=== PATIENT | female | born 1960 | race Caucasian/White ===

== ENCOUNTER 2021-05-05 08:44 | Day surgery (SDC) | payer BC ==
[2021-05-05] MEDS ORDERED: SODIUM CHLORIDE 0.9% 1,000 ML IV STA (09:02)
[2021-05-05] MEDS ORDERED: ASPIRIN CHEW 81 MG TABLET PO STA (09:02)
[2021-05-05] MEDS ORDERED: ONDANSETRON 4 MG/2 ML VIAL IVP STA ×2 (09:02→12:55)
[2021-05-05] MEDS ORDERED: HYDROmorphone 1 MG/ML CARPUJECT IVP STA ×4 (09:16→14:11)
[2021-05-05] MEDS ORDERED: GI COCKTAIL 120 ML BOTTLE PO STA (09:17)
--- NOTE | 2021-05-05 09:22 | ED Physician Documentation ---
PD HPI CHEST PAIN - Stated complaint Stated Complaint: CHEST PX,SOA,NAUSEA - Chief complaint Chief Complaint: Cardiac - History obtained from History obtained from: Patient - Additional information Additional information: Patient comes to the emergency department chief complaint of episodic substernal chest pain that has been going on every couple of days for the last 2 weeks. Patient states she has had pain like this before for years, but that it usually is not so frequent. At worst, the pain is a 8 out of 10, and radiates to the back. Is worse with deep breaths. No radiation to shoulders or neck. Patient states that she gets a sense of panic when that happens and begins breathing hard. She also states she gets some nausea, but she thinks it is from the pain. Patient denies any specific triggers. The current episode began at 3:00 this morning and has been steady since. Nothing seems to make it better. Deep breaths make it worse. No exertional component. Patient has a history of hypertension and borderline diabetes. She has been told previously that she has gastritis and states that "stomach stuff" runs in her family. She has a history of cholelithiasis when she was 30 years ago, but has not known of any issues with it since. No history of pancreatitis. 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 She states that she was put on anticoagulants after this and control was stopped, and that eventually, the clots went away. The patient states that she has not had any issues with this since. She is not known to have any coronary artery disease. She states both parents in their early 60s, from complications related to alcoholism, but never had heart disease that she knows of. Patient has not been ill with anything recently. No other complaints at this time. Review of Systems Ten Systems: 10 systems reviewed and negative Constitutional: reports: Reviewed and negative Eyes: reports: Reviewed and negative Ears: reports: Reviewed and negative Nose: reports: Reviewed and negative Throat: reports: Reviewed and negative Cardiac: reports: Chest pain / pressure Respiratory: reports: Dyspnea GI: reports: Abdominal Pain, Nausea : reports: Reviewed and negative Skin: reports: Reviewed and negative Musculoskeletal: reports: Reviewed and negative Neurologic: reports: Reviewed and negative Psychiatric: reports: Reviewed and negative Endocrine: reports: Reviewed and negative Immunocompromised: reports: Reviewed and negative PD PAST MEDICAL HISTORY - Past Medical History Past Medical History: Yes Cardiovascular: Hypertension Neuro: Migraines - Past Surgical History Past Surgical History: Yes Ortho: Hip replacement, Shoulder arthroplasty - Present Medications Home Medications: Ambulatory Orders Medication Instructions Recorded Confirmed Docusate Sodium 250Mg Capsule 250 mg PO DAILY #20 cap 05/05/21 [Colace 250Mg Capsule] Lactobacillus Acidophilus 1 each PO DAILY 05/05/21 05/05/21 [Probiotic Acidophilus] Lisinopril [Zestril] 20 mg PO DAILY 05/05/21 05/05/21 Ondansetron Odt [Zofran Odt] 4 mg TL Q6H PRN #10 tablet 05/05/21 oxyCODONE [Roxicodone] 5 mg PO Q4-6H PRN #20 tablet 05/05/21 - Allergies Allergies/Adverse Reactions: Allergies Allergy/AdvReac Type Severity Reaction Status Date / Time nitrofurantoin Allergy Hives Verified 05/05/21 08:57 [From Macrobid] codeine AdvReac Emesis Verified 05/05/21 08:58 - Social History Does the pt smoke?: No Smoking Status: Never smoker Does the pt drink ETOH?: No - Immunizations Immunizations are current?: Yes - POLST Patient has POLST: No PD ED PE NORMAL - Vitals Vital signs reviewed: Yes - General General: Alert and oriented X 3, Other (Mildly anxious, Appears in moderate discomfort, occasionally pushing on her inferior sternum, otherwise no apparent distress) - HEENT HEENT: Atraumatic, PERRL, EOMI, Moist mucous membranes - Neck Neck: Supple, no meningeal sign - Cardiac Cardiac: RRR, No murmur, Strong equal pulses - Respiratory Respiratory: No respiratory distress, Clear bilaterally - Abdomen Abdomen: Soft, Non distended, Other (Moderate epigastric tenderness, no rebound or guarding. 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, No motor deficit, No sensory deficit, Normal speech - Psych Psych: Normal affect, Other (Mildly anxious, otherwise normal mood.) Results - Vitals Vitals: Vital Signs - 24 hr 05/05/21 05/05/21 05/05/21 08:54 09:04 09:30 Temperature 36.4 C L Heart Rate 69 60 56 L Respiratory 16 17 17 Rate Blood Pressure 180/98 H 165/109 H O2 Saturation 98 100 99 05/05/21 05/05/21 05/05/21 09:50 11:22 11:58 Temperature Heart Rate 62 61 60 Respiratory 17 12 16 Rate Blood Pressure 155/62 H 149/120 H 137/93 H O2 Saturation 95 99 93 05/05/21 12:03 Temperature Heart Rate 63 Respiratory 16 Rate Blood Pressure 137/73 H O2 Saturation 93 Oxygen O2 Source Room air - EKG (time done) 0852 Rate: Rate (enter#) (55) Rhythm: NSR [place]: Normal Intervals: Normal SD QRS: Normal Ischemia: Normal ST segments. No: T wave inversion Compare to prior EKG: Old EKG unavailable Computer interpretation: Agree with computer - Labs Labs: Laboratory Tests 05/05/21 05/05/21 05/05/21 09:25 09:25 09:25 WBC 7.1 RBC 4.72 Hgb 14.1 Hct 42.6 MCV 90.3 MCH 29.9 MCHC 33.1 RDW 13.4 Plt Count 218 MPV 10.5 Neut # (Auto) 4.5 Lymph # (Auto) 2.1 [place] # (Auto) 0.4 Eos # (Auto) 0.0 Baso # (Auto) 0.1 Absolute Nucleated RBC 0.00 Nucleated RBC % 0.0 PT 11.9 INR 1.1 D-Dimer 226.6 Sodium 138 Potassium 4.5 Chloride 103 Carbon Dioxide 23 Anion Gap 12.0 BUN 16 Creatinine 0.7 Estimated GFR (MDRD) 85 L Glucose 149 H Calcium 9.5 Total Bilirubin 0.9 AST 17 ALT 20 Alkaline Phosphatase 46 Troponin I High Sens Total Protein 7.7 Albumin 4.5 Globulin 3.2 Albumin/Globulin Ratio 1.4 Lipase 36 Nasal Adenovirus (PCR) Nasal B. parapertussis DNA (PCR) Nasal Coronavir 229E PCR Nasal Coronavir HKU1 PCR Nasal Coronavir NL63 PCR Nasal Coronavir OC43 PCR Nasal Enterovir/Rhinovir PCR Nasal Influenza B PCR Nasal Influenza A PCR Nasal Parainfluen 1 PCR Nasal Parainfluen 2 PCR Nasal Parainfluen 3 PCR Nasal Parainfluen 4 PCR Nasal RSV (PCR) Nasal B.pertussis DNA PCR Nasal C.pneumoniae (PCR) [place] Human Metapneumo PCR Nasal M.pneumoniae (PCR) Nasal SARS-CoV-2 (PCR) 05/05/21 05/05/21 05/05/21 09:25 09:25 11:09 WBC RBC Hgb Hct MCV MCH MCHC RDW Plt Count MPV Neut # (Auto) Lymph # (Auto) [place] # (Auto) Eos # (Auto) Baso # (Auto) Absolute Nucleated RBC Nucleated RBC % PT INR D-Dimer Sodium Potassium Chloride Carbon Dioxide Anion Gap BUN Creatinine Estimated GFR (MDRD) Glucose Calcium Total Bilirubin AST ALT Alkaline Phosphatase Troponin I High Sens 11.2 Total Protein Albumin Globulin Albumin/Globulin Ratio Lipase 34 Nasal Adenovirus (PCR) NOT DETECTED Nasal B. parapertussis DNA (PCR) NOT DETECTED Nasal Coronavir 229E PCR NOT DETECTED Nasal Coronavir HKU1 PCR NOT DETECTED Nasal Coronavir NL63 PCR NOT DETECTED Nasal Coronavir OC43 PCR NOT DETECTED Nasal Enterovir/Rhinovir PCR NOT DETECTED Nasal Influenza B PCR NOT DETECTED Nasal Influenza A PCR NOT DETECTED Nasal Parainfluen 1 PCR NOT DETECTED Nasal Parainfluen 2 PCR NOT DETECTED Nasal Parainfluen 3 PCR NOT DETECTED Nasal Parainfluen 4 PCR NOT DETECTED Nasal RSV (PCR) NOT DETECTED Nasal B.pertussis DNA PCR NOT DETECTED Nasal C.pneumoniae (PCR) NOT DETECTED [place] Human Metapneumo PCR NOT DETECTED Nasal M.pneumoniae (PCR) NOT DETECTED Nasal SARS-CoV-2 (PCR) NOT DETECTED PD MEDICAL DECISION MAKING - ED course Complexity details: reviewed results, re-evaluated patient, considered differential, d/w patient, d/w family ED course: The patient was worked up with labs, EKG, chest x-ray, and ultrasound of the right upper quadrant. She was treated symptomatically with IV fluids, aspirin, Zofran, Dilaudid, and GI cocktail. Patient's labs were unremarkable, as were her EKG and chest x-ray, but ultrasound did show evidence of cholecystitis with a calculus lodged in the neck of the gallbladder. I spoke with the patient about this and she was amenable to having surgery today as she has required repeated doses of Dilaudid for pain control in the emergency department. I spoke with Dr. Morales, who is planning to take the patient to operating room at 1600 today. At her request, patient was given a dose of Zosyn here in the emergency department. Departure - Departure Disposition: ED Transfer to [facility] Clinical Impression: Acute cholecystitis due to biliary calculus Condition: Serious
--- NOTE | 2021-05-05 09:29 | XRAY Report ---
PROCEDURE: Chest 1 View X-Ray INDICATIONS: Chest Pain TECHNIQUE: One view of the chest was acquired. COMPARISON: None FINDINGS: Surgical changes and devices: None. Lungs and pleura: No pleural effusions or pneumothorax. Lungs are clear. Mediastinum: Mediastinal contours appear normal. Heart size is normal. Bones and chest wall: No suspicious bony lesions. Overlying soft tissues appear unremarkable. IMPRESSION: No acute cardiopulmonary abnormality Reviewed by: Izaiah Avendaño on 05/05/2021 9:28 AM PDT Approved by: Izaiah Avendaño on 05/05/2021 9:28 AM PDT Station ID: [id number]
[2021-05-05 09:34] LABS: BASOPHILS # (AUTO) 0.1 10^3/uL (0.0-0.1); BASOPHILS % (AUTO) 0.7 %; EOSINOPHILS % (AUTO) 0.6 %; HCT - HEMATOCRIT 42.6 % (37.0-47.0); HGB - HEMOGLOBIN 14.1 g/dL (12.0-16.0); LYMPHOCYTES # (AUTO) 2.1 10^3/uL (1.5-3.5); LYMPHOCYTES % (AUTO) 28.8 %; MEAN CORPUSCULAR HEMOGLOBIN 29.9 pg (27.0-31.0); MEAN CORPUSCULAR HGB CONC 33.1 g/dL (32.0-36.0); MEAN CORPUSCULAR VOLUME 90.3 fL (81.0-99.0); MEAN PLATELET VOLUME 10.5 fL (7.9-10.8); MONOCYTES # (AUTO) 0.4 10^3/uL (0.0-1.0); MONOCYTES % (AUTO) 5.8 %; NEUTROPHILS # (AUTO) 4.5 10^3/uL (1.5-6.6); NEUTROPHILS % (AUTO) 63.8 %; PLT - PLATELET COUNT 218 10^3/uL (130-450); RED BLOOD COUNT 4.72 10^6/uL (4.20-5.40); RED CELL DISTRIBUTION WIDTH 13.4 % (12.0-15.0); WHITE BLOOD COUNT 7.1 x10^3/uL (4.8-10.8)
[2021-05-05] MEDS ORDERED: LIDOCAINE VISCOUS 2% 15 ML UDC MM STA (09:39)
[2021-05-05] MEDS ORDERED: MAG HYDROX/AL HYDROX/SIMETH 30 ML UDC PO STA (09:39)
[2021-05-05 09:44] LABS: INR 1.1 (0.8-1.2); PT - PROTHROMBIN TIME 11.9 secs (9.9-12.6)
[2021-05-05 09:51] LABS: D-DIMER 226.6 ng/mL (200.0-255.0)
[2021-05-05 09:54] LABS: ALBUMIN 4.5 g/dL (3.2-5.5); ALBUMIN/GLOBULIN RATIO 1.4 (1.0-2.2); BILIRUBIN,TOTAL 0.9 mg/dL (0.2-1.0); CALCIUM 9.5 mg/dL (8.5-10.3); CREATININE 0.7 mg/dL (0.4-1.0); POTASSIUM 4.5 mmol/L (3.5-5.0); TOTAL PROTEIN 7.7 g/dL (6.7-8.2)
--- NOTE | 2021-05-05 10:37 | Ultrasound Report ---
PROCEDURE: Abdomen Limited INDICATIONS: epigastric pain TECHNIQUE: Real-time scanning was performed of the abdominal and retroperitoneal organs, with image documentatio n. COMPARISON: None. FINDINGS: Liver: Liver is mildly prominent measuring 16.2 cm and demonstrates steatosis. Gallbladder: There is a focus of nonmobile increased echogenicity within the gallbladder neck. No per icholecystic fluid In addition, areas of ringdown artifact are noted from the gallbladder wall, consi stent with adenomyomatosis. Gallbladder wall is thickened measuring 3.4 cm. Biliary ducts: Intrahepatic bile ducts are non-dilated. Extrahepatic bile duct caliber measures 6.9 mm. Normal is 6-7 mm or less in diameter, or 10 mm or less post-cholecystectomy. Pancreas: Visualized portions of the pancreas are sonographically normal. Spleen: Spleen is normal in size and homogeneous in echotexture. Kidneys: Kidneys are normal in size and echotexture. Right kidney measures 11.9 cm long. No hydron ephrosis or nephrolithiasis. No solid masses. IMPRESSION: Gallbladder stone consistent with cholelithiasis. Gallbladder wall is thickened. Findings are suggest cristela of cholecystitis. Reviewed by: Mary Painter MD on 05/05/2021 10:36 AM PDT Approved by: Mary Painter MD on 05/05/2021 10:36 AM PDT Station ID: [id number]
[2021-05-05 12:24] LABS: CORONAVIRUS 229E-RESP PCR NOT DETECTED; CORONAVIRUS HKU1-RESP PCR NOT DETECTED; CORONAVIRUS NL63-RESP PCR NOT DETECTED; CORONAVIRUS OC43-RESP PCR NOT DETECTED; HUMAN METAPNEUMOVIRUS NOT DETECTED; INFLUENZA A- RESP PCR PANEL NOT DETECTED; RHINOVIRUS/ENTEROVIRUS NOT DETECTED; SARS-CoV-2 -RESP PCR PANEL NOT DETECTED
[2021-05-05 12:25] LABS: B. PARAPERTUSSIS- RESP PCR PAN NOT DETECTED; B. PERTUSSIS- RESP PCR PANEL NOT DETECTED; C. PNEUMONIAE- RESP PCR PANEL NOT DETECTED; INFLUENZA B - RESP PCR PANEL NOT DETECTED; M. PNEUMONIAE- RESP PCR PANEL NOT DETECTED; PARAINFLUENZA VIRUS 1 NOT DETECTED; PARAINFLUENZA VIRUS 2 NOT DETECTED; PARAINFLUENZA VIRUS 3 NOT DETECTED; PARAINFLUENZA VIRUS 4 NOT DETECTED; RSV- RESP PCR PANEL NOT DETECTED
[2021-05-05] MEDS ORDERED: PIPERACILLIN/TAZOBACTAM 3.375 GM in SODIUM CHLORIDE 0.9% MINIBAG 100 ML IV STA (12:26)
--- NOTE | 2021-05-05 13:02 | ANESTHESIA ---
Pre-Anesthesia VS, & Labs - Diagnosis acute cholecystitis - Procedure laparoscopic cholecystectomy Vital Signs: Temp Pulse Resp BP Pulse Ox 36.4 C L 63 16 137/73 H 93 05/05/21 08:54 05/05/21 12:03 05/05/21 12:03 05/05/21 12:03 05/05/21 12:03 Height: 5 ft 8 in Weight (kg): 106.594 kg Body Mass Index: 35.7 BMI Classification: Obese - NPO >8 hours - Is Patient ?: No - Lab Results Current Lab Results: Laboratory Tests 05/05/21 09:25: Lipase 34 05/05/21 09:25: Troponin I High Sens 11.2 05/05/21 09:25: Sodium 138, Potassium 4.5, Chloride 103, Carbon Dioxide 23, Anion Gap 12.0, BUN 16, Creatinine 0.7, Estimated GFR (MDRD) 85 L, Glucose 149 H , Calcium 9.5, Total Bilirubin 0.9, AST 17, ALT 20, Alkaline Phosphatase 46, Total Protein 7.7, Albumin 4.5, Globulin 3.2, Albumin/Globulin Ratio 1.4, Lipase 36 05/05/21 09:25: PT 11.9, INR 1.1, D-Dimer 226.6 05/05/21 09:25: WBC 7.1, RBC 4.72, Hgb 14.1, Hct 42.6, MCV 90.3, MCH 29.9, MCHC 33.1, RDW 13.4, Plt Count 218, MPV 10.5, Neut # (Auto) 4.5, Lymph # (Auto) 2.1, [place] # (Auto) 0.4, Eos # (Auto) 0.0, Baso # (Auto) 0.1, Absolute Nucleated RBC 0.00, Nucleated RBC % 0.0 Lab results reviewed: Yes Fish Bones: 05/05/21 09:25 05/05/21 09:25 Home Medications and Allergies Home Medications: Ambulatory Orders Lactobacillus Acidophilus [Probiotic Acidophilus] 1 each PO DAILY 05/05/21 Lisinopril [Zestril] 20 mg PO DAILY 05/05/21 Lactobacillus Acidophilus [Probiotic Acidophilus] 1 each PO DAILY 05/05/21 Lisinopril [Zestril] 20 mg PO DAILY 05/05/21 Allergies/Adverse Reactions: Allergies Allergy/AdvReac Type Severity Reaction Status Date / Time nitrofurantoin Allergy Hives Verified 05/05/21 08:57 [From Macrobid] codeine AdvReac Emesis Verified 05/05/21 08:58 Anes History & Medical History - Anesthetic History Anesthesia Complications: reports: No previous complications Family history of Anesthesia Complications: Denies Family history of Malignant Hyperthermia: Denies - Medical History Cardiovascular: reports: Hypertension Pulmonary: reports: None Gastrointestinal: reports: None Urinary: reports: None Neuro: reports: Migraines Musculoskeletal: reports: None Endocrine/Autoimmune: reports: None Blood Disorders: reports: None Skin: reports: None Smoking Status: Never smoker Psychosocial: reports: No issues indicated History of Cancer?: No - Surgical History Orthopedic: reports: Hip replacement, Shoulder arthroplasty Exam General: Alert, Oriented x3, Cooperative, No acute distress Dental: WNL Mouth Openin Fingerbreadth Neck Mobility: Normal Mallampati classification: II Respiratory: Lungs clear, Normal breath sounds, No respiratory distress, No accessory muscle use Cardiovascular: Regular rate, Normal S1, Normal S2, No murmurs Plan Anesthesia Type: General Consent for Procedure(s) Verified and Reviewed: Yes Code Status: Attempt Resuscitation ASA classification: 2-Mild systemic disease Is this case an emergency?: No
--- NOTE | 2021-05-05 13:13 | HISTORY & PHYSICAL EXAMINATION ---
HPI - Admitted From Admitted from: ED - History Obtained From Records Reviewed: RN notes reviewed History obtained from: Patient, Family Exam limitations: No limitations - History of Present Illness Severity at the worst: reports: Severe Pain Quality: reports: Sharp, Aching, Crushing Context-Pain started w/: reports: Rest Timing: reports: Abrupt onset Duration: reports: Hours: (12) Improved with: reports: Nothing Worsened by: reports: Movement, Palpation Associated symptoms: reports: Nausea HPI Comment/Other: There is a anna 61-year-old lady for crushing substernal chest pain. She has a known history of gallstones diagnosed more than 20 years ago. She [place] her [place] a [place] the [place] and they actually live across the [facility]. She reports that she has had similar pains off and on for the last several years but nothing this severe. She was seen and evaluated by ER staff and ruled out for IN with normal troponin and EKG. Labs have all been normal. Ultrasound shows a stone lodged in the neck of the gallbladder that is no longer mobile the patient had a positive [place] sign on examination. PMH/PSH - Past Medical History Cardiovascular: positive: Hypertension Respiratory: positive: None Neuro: positive: Migraines Endocrine/Autoimmune: positive: None GI: positive: None : positive: None Musculoskeletal: positive: None Derm: positive: None MRSA Hx?: No - Past Surgical History Ortho: positive: Hip replacement, Shoulder arthroplasty Social & Family Hx - Living Situation Living Arrangement: At home - Social History Does the pt smoke?: No Smoking Status: Never smoker Does the pt drink ETOH?: No - POLST Patient has POLST: No Meds/Allgy - Home Medications Home Medications: Ambulatory Orders Medication Instructions Recorded Confirmed Docusate Sodium 250Mg Capsule 250 mg PO DAILY #20 cap 05/05/21 [Colace 250Mg Capsule] Lactobacillus Acidophilus 1 each PO DAILY 05/05/21 05/05/21 [Probiotic Acidophilus] Lisinopril [Zestril] 20 mg PO DAILY 05/05/21 05/05/21 Ondansetron Odt [Zofran Odt] 4 mg TL Q6H PRN #10 tablet 05/05/21 oxyCODONE [Roxicodone] 5 mg PO Q4-6H PRN #20 tablet 05/05/21 - Allergies Allergies/Adverse Reactions: Allergies Allergy/AdvReac Type Severity Reaction Status Date / Time nitrofurantoin Allergy Hives Verified 05/05/21 08:57 [From Macrobid] codeine AdvReac Emesis Verified 05/05/21 08:58 Review of Systems - Constitutional Constitutional: reports: Fatigue - Cardiovascular Cariovascular: reports: Chest pain - Gastrointestinal Gastrointestinal: reports: Abdominal pain, Nausea Exam - Vital Signs Reviewed Vital Signs: Yes Vital Signs: Vital Signs x48h Temp Pulse Resp BP Pulse Ox 05/05/21 12:03 63 16 137/73 H 93 05/05/21 11:58 60 16 137/93 H 93 05/05/21 11:22 61 12 149/120 H 99 05/05/21 09:50 62 17 155/62 H 95 05/05/21 09:30 56 L 17 165/109 H 99 05/05/21 09:04 60 17 100 05/05/21 08:54 36.4 C L 69 16 180/98 H 98 - Physical Exam General Appearance: positive: Alert, Mild distress Eyes Bilateral: positive: Normal inspection, PERRL, EOMI ENT: positive: ENT inspection nml, Pharynx nml, No signs of dehydration Neck: positive: Nml inspection, Thyroid nml, No JVD Respiratory: positive: Chest non-tender, No respiratory distress, Breath sounds nml Cardiovascular: positive: Regular rate & rhythm Peripheral Pulses: positive: 0 Abdomen: positive: Tenderness Back: positive: CVA tenderness (R). negative: CVA tenderness (L) Skin: positive: Color nml, No rash Extremities: positive: Non-tender, Full ROM Neurologic/Psychiatric: positive: Oriented x3 Results - Lab Results Fish Bones: 05/05/21 09:25 05/05/21 09:25 Other Lab Results: Lab Results x24hrs 05/05/21 05/05/21 05/05/21 Range/Units 11:09 09:25 09:25 WBC (4.8-10.8) x10^3/uL RBC (4.20-5.40) 10^6/uL Hgb (12.0-16.0) g/dL Hct (37.0-47.0) % MCV (81.0-99.0) fL MCH (27.0-31.0) pg MCHC (32.0-36.0) g/dL RDW (12.0-15.0) % Plt Count (130-450) 10^3/uL MPV (7.9-10.8) fL Neut # (Auto) (1.5-6.6) 10^3/uL Lymph # (Auto) (1.5-3.5) 10^3/uL [place] # (Auto) (0.0-1.0) 10^3/uL Eos # (Auto) (0.0-0.7) 10^3/uL Baso # (Auto) (0.0-0.1) 10^3/uL Absolute Nucleated RBC x10^3/uL Nucleated RBC % /100WBC PT (9.9-12.6) secs INR (0.8-1.2) D-Dimer (200.0-255.0) ng/mL Sodium (135-145) mmol/L Potassium (3.5-5.0) mmol/L Chloride (101-111) mmol/L Carbon Dioxide (21-32) mmol/L Anion Gap (6-13) BUN (6-20) mg/dL Creatinine (0.4-1.0) mg/dL Estimated GFR (MDRD) (>89) Glucose (70-100) mg/dL Calcium (8.5-10.3) mg/dL Total Bilirubin (0.2-1.0) mg/dL AST (10-42) IU/L ALT (10-60) IU/L Alkaline Phosphatase (42-121) IU/L Troponin I High Sens 11.2 (2.3-14.8) ng/L Total Protein (6.7-8.2) g/dL Albumin (3.2-5.5) g/dL Globulin (2.1-4.2) g/dL Albumin/Globulin Ratio (1.0-2.2) Lipase 34 (22-51) U/L Nasal Adenovirus (PCR) NOT DETECTED Nasal B. parapertussis DNA (PCR) NOT DETECTED Nasal Coronavir 229E PCR NOT DETECTED Nasal Coronavir HKU1 PCR NOT DETECTED Nasal Coronavir NL63 PCR NOT DETECTED Nasal Coronavir OC43 PCR NOT DETECTED Nasal Enterovir/Rhinovir PCR NOT DETECTED Nasal Influenza B PCR NOT DETECTED Nasal Influenza A PCR NOT DETECTED Nasal Parainfluen 1 PCR NOT DETECTED Nasal Parainfluen 2 PCR NOT DETECTED Nasal Parainfluen 3 PCR NOT DETECTED Nasal Parainfluen 4 PCR NOT DETECTED Nasal RSV (PCR) NOT DETECTED Nasal B.pertussis DNA PCR NOT DETECTED Nasal C.pneumoniae (PCR) NOT DETECTED [place] Human Metapneumo PCR NOT DETECTED Nasal M.pneumoniae (PCR) NOT DETECTED Nasal SARS-CoV-2 (PCR) NOT DETECTED 05/05/21 05/05/21 05/05/21 Range/Units 09:25 09:25 09:25 WBC 7.1 (4.8-10.8) x10^3/uL RBC 4.72 (4.20-5.40) 10^6/uL Hgb 14.1 (12.0-16.0) g/dL Hct 42.6 (37.0-47.0) % MCV 90.3 (81.0-99.0) fL MCH 29.9 (27.0-31.0) pg MCHC 33.1 (32.0-36.0) g/dL RDW 13.4 (12.0-15.0) % Plt Count 218 (130-450) 10^3/uL MPV 10.5 (7.9-10.8) fL Neut # (Auto) 4.5 (1.5-6.6) 10^3/uL Lymph # (Auto) 2.1 (1.5-3.5) 10^3/uL [place] # (Auto) 0.4 (0.0-1.0) 10^3/uL Eos # (Auto) 0.0 (0.0-0.7) 10^3/uL Baso # (Auto) 0.1 (0.0-0.1) 10^3/uL Absolute Nucleated RBC 0.00 x10^3/uL Nucleated RBC % 0.0 /100WBC PT 11.9 (9.9-12.6) secs INR 1.1 (0.8-1.2) D-Dimer 226.6 (200.0-255.0) ng/mL Sodium 138 (135-145) mmol/L Potassium 4.5 (3.5-5.0) mmol/L Chloride 103 (101-111) mmol/L Carbon Dioxide 23 (21-32) mmol/L Anion Gap 12.0 (6-13) BUN 16 (6-20) mg/dL Creatinine 0.7 (0.4-1.0) mg/dL Estimated GFR (MDRD) 85 L (>89) Glucose 149 H (70-100) mg/dL Calcium 9.5 (8.5-10.3) mg/dL Total Bilirubin 0.9 (0.2-1.0) mg/dL AST 17 (10-42) IU/L ALT 20 (10-60) IU/L Alkaline Phosphatase 46 (42-121) IU/L Troponin I High Sens (2.3-14.8) ng/L Total Protein 7.7 (6.7-8.2) g/dL Albumin 4.5 (3.2-5.5) g/dL Globulin 3.2 (2.1-4.2) g/dL Albumin/Globulin Ratio 1.4 (1.0-2.2) Lipase 36 (22-51) U/L Nasal Adenovirus (PCR) Nasal B. parapertussis DNA (PCR) Nasal Coronavir 229E PCR Nasal Coronavir HKU1 PCR Nasal Coronavir NL63 PCR Nasal Coronavir OC43 PCR Nasal Enterovir/Rhinovir PCR Nasal Influenza B PCR Nasal Influenza A PCR Nasal Parainfluen 1 PCR Nasal Parainfluen 2 PCR Nasal Parainfluen 3 PCR Nasal Parainfluen 4 PCR Nasal RSV (PCR) Nasal B.pertussis DNA PCR Nasal C.pneumoniae (PCR) [place] Human Metapneumo PCR Nasal M.pneumoniae (PCR) Nasal SARS-CoV-2 (PCR) - Diagnostic Imaging Results Diagnostic Imaging Results: positive: Prelim report reviewed Diagnostic Imaging Results Comments: US as dictated - EKG Results EKG Interpreted Independently: Yes EKG Findings: NSR Impression/Plan - Problem List Problem List: Pleasant and generally healthy 61-year-old lady with acute cholecystitis and cholelithiasis. I have recommended urgent lap inga. The patient has received antibiotics here in the emergency room and pain medications, nausea medications, and constipation prevention have all been transmitted to local pharmacy. We discussed the risks and benefits of the procedure as well as the alternatives and the patient is expressed both verbal and written consent to proceed
[2021-05-05 15:45] LABS: BILIRUBIN,URINE NEGATIVE (NEGATIVE); GLUCOSE, URINE (UA) NEGATIVE (NEGATIVE); KETONES,URINE (UA) NEGATIVE (NEGATIVE); LEUKOCYTE ESTERASE, URINE NEGATIVE (NEGATIVE); NITRITE,URINE POSITIVE (NEGATIVE); OCCULT BLOOD,URINE SMALL (NEGATIVE); PROTEIN,URINE NEGATIVE (NEGATIVE); UROBILINOGEN,URINE 0.2 (NORMAL) E.U./dL (NORMAL)
[2021-05-05 15:46] LABS: CLARITY,URINE SL. CLOUDY (CLEAR)
[2021-05-05] MEDS ORDERED: KETOROLAC 30 MG/ML VIAL ONE (15:48)
[2021-05-05] MEDS ORDERED: LIDOCAINE-MPF 2% 5 ML VIAL ONE (15:48)
[2021-05-05] MEDS ORDERED: DEXAMETHASONE 4 MG/ML VIAL ONE (15:48)
[2021-05-05] MEDS ORDERED: ROCURONIUM 50 MG/5 ML VIAL ONE (15:48)
[2021-05-05] MEDS ORDERED: fentaNYL 100 MCG/2 ML VIAL ONE (15:48)
[2021-05-05] MEDS ORDERED: PROPOFOL 200 MG/20 ML VIAL IVP ONE (15:48)
[2021-05-05] MEDS ORDERED: ONDANSETRON 4 MG/2 ML VIAL ONE (15:48)
[2021-05-05 15:51] LABS: AMORPHOUS SEDIMENT,UR Rare /LPF; BACTERIA,URINE Moderate /HPF (None Seen); MUCUS,URINE Few Strands; RBC,URINE 0-5 /HPF (0-5); SQUAMOUS EPITHELIAL CELL,UR FEW Squamous (<= Few); WBC,URINE 0-3 /HPF (0-5); YEAST,URINE PRESENT
[2021-05-05] MEDS ORDERED: BUPIVACAINE 0.5%-EPI 1:200000 PF 30 ML VIAL ONE (16:21)
[2021-05-05] MEDS ORDERED: LIDOCAINE-MPF 1% 30 ML VIAL ONE (16:21)
[2021-05-05] MEDS ORDERED: KETAMINE 500 MG/10 ML VIAL ONE (16:54)
[2021-05-05] MEDS ORDERED: ACETAMINOPHEN 1,000 MG/100 ML 100 ML IV ONE (16:59)
[2021-05-05] MEDS ORDERED: BUPIVACAINE 0.5% PF 30 ML VIAL INFIL ONE (17:03)
[2021-05-05] MEDS ORDERED: fentaNYL 100 MCG/2 ML VIAL IVP PRN (17:04)
[2021-05-05] MEDS ORDERED: METOCLOPRAMIDE 10 MG/2 ML VIAL IVP PRN (17:04)
[2021-05-05] MEDS ORDERED: HYDROmorphone 0.5 MG/0.5 ML SYRINGE IVP PRN ×2 (17:04→18:28)
[2021-05-05] MEDS ORDERED: ePHEDrine 50 MG/ML VIAL IVP PRN (17:04)
[2021-05-05] MEDS ORDERED: NALOXONE 0.4 MG/ML VIAL IVP PRN (17:04)
[2021-05-05] MEDS ORDERED: ATROPINE ABBOJECT 1 MG/10 ML SYRINGE IVP PRN (17:04)
[2021-05-05] MEDS ORDERED: LIDOCAINE 2%-EPI 1:100000 20 ML MDV SUBQ ONE (17:04)
[2021-05-05] MEDS ORDERED: MORPHINE 2 MG/ML CARPUJECT IVP PRN (17:04)
[2021-05-05] MEDS ORDERED: ONDANSETRON 4 MG/2 ML VIAL IVP PRN ×2 (17:04→18:29)
[2021-05-05] MEDS ORDERED: SUGAMMADEX 200 MG/2 ML VIAL IVP ONE (17:05)
[2021-05-05] MEDS ORDERED: IOTHALAMATE MEGLUMINE 50 ML VIAL ONE (17:18)
--- NOTE | 2021-05-05 17:53 | XRAY Report ---
PROCEDURE: OR C-Arm Procedure INDICATIONS: GALLSTONES TECHNIQUE: Intraoperative images COMPARISON: None. FINDINGS: [place] intraluminal filling defect seen within the common hepatic duct, possibly air bubble although technically indeterminate. No evidence of extraluminal contrast leakage. IMPRESSION: Possible air bubble (versus calculus) seen within the common hepatic duct although technically indete rminate and recommend correlation to real-time findings. Reviewed by: Yanick Mehta MD on 05/05/2021 5:52 PM PDT Approved by: Yanick Mehta MD on 05/05/2021 5:52 PM PDT Station ID: [id number]
[2021-05-05] MEDS ORDERED: LACTATED RINGERS 1,000 ML IV SCH (18:00)
[2021-05-05] MEDS ORDERED: SODIUM CHLORIDE FLUSH 0.9% 10 ML SYRINGE IVP PRN (18:25)
[2021-05-05] MEDS ORDERED: LACTATED RINGERS 1,000 ML IV ONE (18:27)
[2021-05-05] MEDS ORDERED: ACETAMINOPHEN 325 MG TABLET PO PRN (18:29)
[2021-05-05] MEDS ORDERED: LORazepam 2 MG/ML VIAL IVP PRN (18:30)
--- NOTE | 2021-05-05 18:35 | OPERATIVE REPORT ---
Operative Report - General Procedure Date: 05/05/21 Planned Procedure: Laparoscopic cholecystectomy Pre-Op Diagnosis: Acute cholecystitis and cholelithiasis Procedure Performed: Laparoscopic cholecystectomy with intraoperative cholangiogram and drain placement Post Op Diagnosis: Acute cholecystitis and cholelithiasis - Procedure Note Primary Surgeon: Art Anesthesia Provider: AUDREY Lambert Pathology: Gall bladder to pathology in formalin Estimated Blood Loss (mL): 300 Drain/Tube Type: Gorge drain (15 F Gorge drain in the gall bladder fossa) Indications: Acute cholecystitis with positive sonographic Paris sign Findings: Thickened and leatherized gallbladder with obliteration of all normal tissue planes in the lesley hepatis. Complications: None apparent - Other Other Information/Narrative: After obtaining informed consent the patient is brought to the operating room and placed in the supine position on the operating table. Following successful induction of general endotracheal anesthesia, appropriate padding of all bony prominences, and placement of appropriate monitors, the abdomen was prepped and draped in the standard surgical fashion. A timeout was held per scope protocol. All elements of the surgical safety checklist were followed before, during, and after the procedure. Following infiltration with local anesthetic to create a field block, an incision was created inferior to the umbilicus and carried down through the skin and subcutaneous tissue to reveal the fascia below. 2-0 Vicryl retention sutures were placed on either side of the midline and the abdomen was entered under direct vision using a 15 blade scalpel. A 10 mm blunt Escoto balloon trocar was placed in the abdominal cavity and it was insufflated to 15 mmHg pressure. The patient was placed in reverse Trendelenburg position with the left side rotated toward the floor. A second trocar, 5 mm, was placed in the midepigastrium under direct vision and after anesthetization of the surrounding skin.A third trocar, also 5 mm was placed in the right upper quadrant for retraction of the gallbladder and a fourth 1 just medial to that as a working port as well. The gallbladder was examined. It was adherent to the surrounding structures including the omentum and the right colon. It was noted to be tense and dark in color. Structure was so tense and so I's that was not able to professor of political science it with the nontraumatic forceps. A pin grasper was obtained for retraction of the gallbladder.With this we were able to elevated up over the liver.It became painfully obvious that the cholecysto hepatoduodenal ligament was foreshortened, severely edematous and scarred. And grossly abnormal.I was able to identify the cystic artery on the surface of the gallbladder itself but not able to clearly dissect out the cystic duct.It was not possible to dissected the structures 1 from another as it was all thickened tight and foreshortened scar tissue.Like to to perform a cholangiogram to define the anatomy. This was done by creating a olegario in the proximal wall of the gallbladder as far down on the neck as I could safely maneuver. The taut Cholangiocath was placed through this opening and clip to the wall of the gallbladder. Saline and then contrast diluted one-to-one with saline was injected into the structure defining the neck of the gallbladder the cystic duct and the common duct. The cystic duct continued proximally toward the common duct for another centimeter or so but I was not able to safely dissect out that portion of the duct. I elected at this port to take the gallbladder down in a retrograde fashion to allow the cystic duct to be ligated without potential injury to the other structures of the lesley hepatis. The gallbladder was liberated from its bed in the liver with Bovie cautery. Again it was densely adherent to the posterior structures and there was significant bleeding from the liver requiring cautery and clips. Once the entire gallbladder was free and held only by its cystic duct pedicle, a vessel loop was passed over it and cinched down as near to the junction of the neck and the cystic duct as possible. The vessel loop was then trimmed the gallbladder amputated distal to this loop and liberated. It was placed in an Endo Catch bag and removed via the umbilical port with a camera in the epigastric position. The camera was replaced in the umbilical position and the abdomen was checked for hemostasis. It was irrigated with warm saline solution and aspirated free of all fluid and particulate matter. Because the raw surface of the liver was so large, I elected to place a large piece of Surgicel in the gallbladder fossa. A 15 [place] drain was placed in the midline trocar and brought out in the right upper quadrant it was then looped into the gallbladder fossa to be left overnight to serve as both bile leak and bleeding surveillance. The trochars were then removed under direct vision and the abdomen desufflated. The umbilical incision was closed with interrupted PDS suture and Monocryl was placed in all of the skin incisions. All sponge, needle, and instrument counts were correct at the conclusion of the case. The patient was allowed awaken from anesthesia without difficulty and taken to the postanesthesia care unit in good condition.
--- NOTE | 2021-05-05 18:50 | ANESTHESIA POST OP EVALUATION ---
Anesthesia Post Eval - Post Anesthesia Eval Vitals: Last Vital Signs Temp 37 C 05/05/21 18:45 Pulse 72 05/05/21 18:45 Resp 15 05/05/21 18:45 BP 135/87 H 05/05/21 18:45 Pulse Ox 95 05/05/21 18:45 CV Function Including HR & BP: Stable Pain Control: Satisfactory Nausea & Vomiting: Negative Mental Status: Baseline Respiratory Status: Airway Patent Hydration Status: Satisfactory Anesthesia Complications: None
[2021-05-05] MEDS: PIPERACILLIN/TAZOBACTAM 3.375 GM in SODIUM CHLORIDE 0.9% MINIBAG 100 ML IV SCH (19:33)
[2021-05-05] MEDS: LACTATED RINGERS 1,000 ML IV SCH (19:37)
[2021-05-05] MEDS ORDERED: SODIUM CHLORIDE 0.9% 250 ML IV PRN (20:05)
[2021-05-05] MEDS: oxyCODONE 5 MG TABLET PO PRN (21:49)
[2021-05-06] MEDS: SODIUM CHLORIDE FLUSH 0.9% 10 ML SYRINGE IVP SCH ×2 (00:36→08:34)
[2021-05-06] MEDS: PIPERACILLIN/TAZOBACTAM 3.375 GM in SODIUM CHLORIDE 0.9% MINIBAG 100 ML IV SCH ×2 (00:56→06:33)
[2021-05-06] MEDS: oxyCODONE 5 MG TABLET PO PRN ×2 (01:52→08:33)
[2021-05-06] MEDS: LACTATED RINGERS 1,000 ML IV SCH (04:33)
[2021-05-06 05:12] LABS: BASOPHILS % (AUTO) 0.1 %; HCT - HEMATOCRIT 37.8 % (37.0-47.0); HGB - HEMOGLOBIN 12.1 g/dL (12.0-16.0); LYMPHOCYTES # (AUTO) 1.4 10^3/uL (1.5-3.5); LYMPHOCYTES % (AUTO) 14.5 %; MEAN CORPUSCULAR HEMOGLOBIN 29.7 pg (27.0-31.0); MEAN CORPUSCULAR VOLUME 92.6 fL (81.0-99.0); MEAN PLATELET VOLUME 10.5 fL (7.9-10.8); MONOCYTES # (AUTO) 0.6 10^3/uL (0.0-1.0); MONOCYTES % (AUTO) 5.9 %; NEUTROPHILS # (AUTO) 7.4 10^3/uL (1.5-6.6); NEUTROPHILS % (AUTO) 79.2 %; PLT - PLATELET COUNT 198 10^3/uL (130-450); RED BLOOD COUNT 4.08 10^6/uL (4.20-5.40); RED CELL DISTRIBUTION WIDTH 13.6 % (12.0-15.0); WHITE BLOOD COUNT 9.4 x10^3/uL (4.8-10.8)
[2021-05-06 05:29] LABS: ALBUMIN 3.6 g/dL (3.2-5.5); ALBUMIN/GLOBULIN RATIO 1.4 (1.0-2.2); ALKALINE PHOSPHATASE 38 IU/L (42-121); ALT ALANINE AMINOTRANSFERASE 96 IU/L (10-60); AST ASPARTATE AMINOTRANSFERASE 85 IU/L (10-42); BILIRUBIN,TOTAL 1.1 mg/dL (0.2-1.0); BUN - BLOOD UREA NITROGEN 12 mg/dL (6-20); CALCIUM 8.5 mg/dL (8.5-10.3); CARBON DIOXIDE - CO2 24 mmol/L (21-32); CHLORIDE 107 mmol/L (101-111); CREATININE 0.7 mg/dL (0.4-1.0); GFR - MDRD 85 (>89); GLUCOSE 135 mg/dL (70-100); IONIZED CALCIUM IF INDICATED NO; POTASSIUM 4.3 mmol/L (3.5-5.0); SODIUM 139 mmol/L (135-145); TOTAL PROTEIN 6.2 g/dL (6.7-8.2)
[2021-05-06 07:59] VITALS: BP 106/61
[2021-05-06] MEDS ORDERED: ENOXAPARIN 40 MG/0.4 ML SYRINGE SUBQ SCH (09:00)
[2021-05-06] MEDS ORDERED: lisinopriL 20 MG TABLET PO SCH (09:00)
[2021-05-06] MEDS ORDERED: ONDANSETRON 4 MG/2 ML VIAL IVP PRN (09:38)
[2021-05-06] MEDS ORDERED: ACETAMINOPHEN 325 MG TABLET PO PRN (09:38)
[2021-05-06] MEDS ORDERED: oxyCODONE 5 MG TABLET PO PRN (09:38)
[2021-05-06] MEDS ORDERED: IBUPROFEN 600 MG TABLET PO PRN (09:38)
--- NOTE | 2021-05-06 09:38 | PROVIDER PROGRESS NOTE ---
Subjective - General Procedure Date: 05/05/21 Post Op Days: 1 Procedure Performed: Laparoscopic cholecystectomy - Review of Systems Wound/Incisions: positive: Healing well, No drainage Drain Type: serosanguinous, non bilious General: positive: No symptoms HEENT: positive: No symptoms Cardiovascular: positive: No symptoms Gastrointestinal: positive: No symptoms, Other (Appropriate tenderness) Genitourinary: positive: No symptoms Musculoskeletal: positive: No symptoms Skin: positive: No symptoms Objective - Patient Data Vital Signs: Vital Signs x48h Temp Pulse Resp BP Pulse Ox 05/06/21 07:58 36.8 C 72 16 106/61 93 05/06/21 06:12 36.9 C 87 17 91 L 05/06/21 04:21 36.9 C 87 17 100/54 L 91 L Weight: Weight 05/04/21 05/05/21 05/06/21 23:59 23:59 23:59 Weight (kg) 106.594 kg Intake & Output: Intake and Output Totals x24h 05/04/21 05/05/21 05/06/21 23:59 23:59 23:59 Intake Total 1210 1400 Output Total 20 20 Balance 1190 1380 - Lab Results Lab Results: 05/06/21 05:02 05/06/21 05:02 Other Lab Results: Lab Results x24hrs 05/06/21 05/06/21 05/05/21 Range/Units 05:02 05:02 15:30 WBC 9.4 (4.8-10.8) x10^3/uL RBC 4.08 L (4.20-5.40) 10^6/uL Hgb 12.1 (12.0-16.0) g/dL Hct 37.8 (37.0-47.0) % MCV 92.6 (81.0-99.0) fL MCH 29.7 (27.0-31.0) pg MCHC 32.0 (32.0-36.0) g/dL RDW 13.6 (12.0-15.0) % Plt Count 198 (130-450) 10^3/uL MPV 10.5 (7.9-10.8) fL Neut # (Auto) 7.4 H (1.5-6.6) 10^3/uL Lymph # (Auto) 1.4 L (1.5-3.5) 10^3/uL [place] # (Auto) 0.6 (0.0-1.0) 10^3/uL Eos # (Auto) 0.0 (0.0-0.7) 10^3/uL Baso # (Auto) 0.0 (0.0-0.1) 10^3/uL Absolute Nucleated RBC 0.00 x10^3/uL Nucleated RBC % 0.0 /100WBC PT (9.9-12.6) secs INR (0.8-1.2) D-Dimer (200.0-255.0) ng/mL Sodium 139 (135-145) mmol/L Potassium 4.3 (3.5-5.0) mmol/L Chloride 107 (101-111) mmol/L Carbon Dioxide 24 (21-32) mmol/L Anion Gap 8.0 (6-13) BUN 12 (6-20) mg/dL Creatinine 0.7 (0.4-1.0) mg/dL Estimated GFR (MDRD) 85 L (>89) Glucose 135 H (70-100) mg/dL Calcium 8.5 (8.5-10.3) mg/dL Ionized Calcium NO Total Bilirubin 1.1 H (0.2-1.0) mg/dL AST 85 H (10-42) IU/L ALT 96 H (10-60) IU/L Alkaline Phosphatase 38 L (42-121) IU/L Troponin I High Sens (2.3-14.8) ng/L Total Protein 6.2 L (6.7-8.2) g/dL Albumin 3.6 (3.2-5.5) g/dL Globulin 2.6 (2.1-4.2) g/dL Albumin/Globulin Ratio 1.4 (1.0-2.2) Lipase (22-51) U/L Urine Color YELLOW Urine Clarity SL. CLOUDY (CLEAR) Urine pH 6.0 (5.0-7.5) PH Ur Specific [place]im >=1.030 H (1.002-1.030) Urine Protein NEGATIVE (NEGATIVE) mg/dL Urine Glucose (UA) NEGATIVE (NEGATIVE) mg/dL Urine Ketones NEGATIVE (NEGATIVE) mg/dL Urine Occult Blood SMALL H (NEGATIVE) Urine Nitrite POSITIVE H (NEGATIVE) Urine Bilirubin NEGATIVE (NEGATIVE) Urine Urobilinogen 0.2 (NORMAL) (NORMAL) E.U./dL Ur Leukocyte Esterase NEGATIVE (NEGATIVE) Urine RBC 0-5 (0-5) /HPF Urine WBC 0-3 (0-5) /HPF Ur Squamous Epith Cells FEW Squamous (<= Few) Amorphous Sediment Rare /LPF Urine Bacteria Moderate H (None Seen) /HPF Urine Mucus Few Strands Urine Yeast PRESENT Ur Microscopic Review INDICATED Urine Culture Comments INDICATED Nasal Adenovirus (PCR) Nasal B. parapertussis DNA (PCR) Nasal Coronavir 229E PCR Nasal Coronavir HKU1 PCR Nasal Coronavir NL63 PCR Nasal Coronavir OC43 PCR Nasal Enterovir/Rhinovir PCR Nasal Influenza B PCR Nasal Influenza A PCR Nasal Parainfluen 1 PCR Nasal Parainfluen 2 PCR Nasal Parainfluen 3 PCR Nasal Parainfluen 4 PCR Nasal RSV (PCR) Nasal B.pertussis DNA PCR Nasal C.pneumoniae (PCR) Kill[place] Human Metapneumo PCR Nasal M.pneumoniae (PCR) Nasal SARS-CoV-2 (PCR) 05/05/21 05/05/21 05/05/21 Range/Units 11:09 09:25 09:25 WBC (4.8-10.8) x10^3/uL RBC (4.20-5.40) 10^6/uL Hgb (12.0-16.0) g/dL Hct (37.0-47.0) % MCV (81.0-99.0) fL MCH (27.0-31.0) pg MCHC (32.0-36.0) g/dL RDW (12.0-15.0) % Plt Count (130-450) 10^3/uL MPV (7.9-10.8) fL Neut # (Auto) (1.5-6.6) 10^3/uL Lymph # (Auto) (1.5-3.5) 10^3/uL [place] # (Auto) (0.0-1.0) 10^3/uL Eos # (Auto) (0.0-0.7) 10^3/uL Baso # (Auto) (0.0-0.1) 10^3/uL Absolute Nucleated RBC x10^3/uL Nucleated RBC % /100WBC PT (9.9-12.6) secs INR (0.8-1.2) D-Dimer (200.0-255.0) ng/mL Sodium (135-145) mmol/L Potassium (3.5-5.0) mmol/L Chloride (101-111) mmol/L Carbon Dioxide (21-32) mmol/L Anion Gap (6-13) BUN (6-20) mg/dL Creatinine (0.4-1.0) mg/dL Estimated GFR (MDRD) (>89) Glucose (70-100) mg/dL Calcium (8.5-10.3) mg/dL Ionized Calcium Total Bilirubin (0.2-1.0) mg/dL AST (10-42) IU/L ALT (10-60) IU/L Alkaline Phosphatase (42-121) IU/L Troponin I High Sens 11.2 (2.3-14.8) ng/L Total Protein (6.7-8.2) g/dL Albumin (3.2-5.5) g/dL Globulin (2.1-4.2) g/dL Albumin/Globulin Ratio (1.0-2.2) Lipase 34 (22-51) U/L Urine Color Urine Clarity (CLEAR) Urine pH (5.0-7.5) PH Ur Specific [place]im (1.002-1.030) Urine Protein (NEGATIVE) mg/dL Urine Glucose (UA) (NEGATIVE) mg/dL Urine Ketones (NEGATIVE) mg/dL Urine Occult Blood (NEGATIVE) Urine Nitrite (NEGATIVE) Urine Bilirubin (NEGATIVE) Urine Urobilinogen (NORMAL) E.U./dL Ur Leukocyte Esterase (NEGATIVE) Urine RBC (0-5) /HPF Urine WBC (0-5) /HPF Ur Squamous Epith Cells (<= Few) Amorphous Sediment /LPF Urine Bacteria (None Seen) /HPF Urine Mucus Urine Yeast Ur Microscopic Review Urine Culture Comments Nasal Adenovirus (PCR) NOT DETECTED Nasal B. parapertussis DNA (PCR) NOT DETECTED Nasal Coronavir 229E PCR NOT DETECTED Nasal Coronavir HKU1 PCR NOT DETECTED Nasal Coronavir NL63 PCR NOT DETECTED Nasal Coronavir OC43 PCR NOT DETECTED Nasal Enterovir/Rhinovir PCR NOT DETECTED Nasal Influenza B PCR NOT DETECTED Nasal Influenza A PCR NOT DETECTED Nasal Parainfluen 1 PCR NOT DETECTED Nasal Parainfluen 2 PCR NOT DETECTED Nasal Parainfluen 3 PCR NOT DETECTED Nasal Parainfluen 4 PCR NOT DETECTED Nasal RSV (PCR) NOT DETECTED Nasal B.pertussis DNA PCR NOT DETECTED Nasal C.pneumoniae (PCR) NOT DETECTED [place] Human Metapneumo PCR NOT DETECTED Nasal M.pneumoniae (PCR) NOT DETECTED Nasal SARS-CoV-2 (PCR) NOT DETECTED 05/05/21 05/05/21 05/05/21 Range/Units 09:25 09:25 09:25 WBC 7.1 (4.8-10.8) x10^3/uL RBC 4.72 (4.20-5.40) 10^6/uL Hgb 14.1 (12.0-16.0) g/dL Hct 42.6 (37.0-47.0) % MCV 90.3 (81.0-99.0) fL MCH 29.9 (27.0-31.0) pg MCHC 33.1 (32.0-36.0) g/dL RDW 13.4 (12.0-15.0) % Plt Count 218 (130-450) 10^3/uL MPV 10.5 (7.9-10.8) fL Neut # (Auto) 4.5 (1.5-6.6) 10^3/uL Lymph # (Auto) 2.1 (1.5-3.5) 10^3/uL [place] # (Auto) 0.4 (0.0-1.0) 10^3/uL Eos # (Auto) 0.0 (0.0-0.7) 10^3/uL Baso # (Auto) 0.1 (0.0-0.1) 10^3/uL Absolute Nucleated RBC 0.00 x10^3/uL Nucleated RBC % 0.0 /100WBC PT 11.9 (9.9-12.6) secs INR 1.1 (0.8-1.2) D-Dimer 226.6 (200.0-255.0) ng/mL Sodium 138 (135-145) mmol/L Potassium 4.5 (3.5-5.0) mmol/L Chloride 103 (101-111) mmol/L Carbon Dioxide 23 (21-32) mmol/L Anion Gap 12.0 (6-13) BUN 16 (6-20) mg/dL Creatinine 0.7 (0.4-1.0) mg/dL Estimated GFR (MDRD) 85 L (>89) Glucose 149 H (70-100) mg/dL Calcium 9.5 (8.5-10.3) mg/dL Ionized Calcium Total Bilirubin 0.9 (0.2-1.0) mg/dL AST 17 (10-42) IU/L ALT 20 (10-60) IU/L Alkaline Phosphatase 46 (42-121) IU/L Troponin I High Sens (2.3-14.8) ng/L Total Protein 7.7 (6.7-8.2) g/dL Albumin 4.5 (3.2-5.5) g/dL Globulin 3.2 (2.1-4.2) g/dL Albumin/Globulin Ratio 1.4 (1.0-2.2) Lipase 36 (22-51) U/L Urine Color Urine Clarity (CLEAR) Urine pH (5.0-7.5) PH Ur Specific [place] (1.002-1.030) Urine Protein (NEGATIVE) mg/dL Urine Glucose (UA) (NEGATIVE) mg/dL Urine Ketones (NEGATIVE) mg/dL Urine Occult Blood (NEGATIVE) Urine Nitrite (NEGATIVE) Urine Bilirubin (NEGATIVE) Urine Urobilinogen (NORMAL) E.U./dL Ur Leukocyte Esterase (NEGATIVE) Urine RBC (0-5) /HPF Urine WBC (0-5) /HPF Ur Squamous Epith Cells (<= Few) Amorphous Sediment /LPF Urine Bacteria (None Seen) /HPF Urine Mucus Urine Yeast Ur Microscopic Review Urine Culture Comments Nasal Adenovirus (PCR) Nasal B. parapertussis DNA (PCR) Nasal Coronavir 229E PCR Nasal Coronavir HKU1 PCR Nasal Coronavir NL63 PCR Nasal Coronavir OC43 PCR Nasal Enterovir/Rhinovir PCR Nasal Influenza B PCR Nasal Influenza A PCR Nasal Parainfluen 1 PCR Nasal Parainfluen 2 PCR Nasal Parainfluen 3 PCR Nasal Parainfluen 4 PCR Nasal RSV (PCR) Nasal B.pertussis DNA PCR Nasal C.pneumoniae (PCR) [place] Human Metapneumo PCR Nasal M.pneumoniae (PCR) Nasal SARS-CoV-2 (PCR) - Current Medications Current Medications: Current Medications Generic Name Dose Route Start Last Admin Trade Name Freq PRN Reason Stop Dose Admin Enoxaparin Sodium 40 mg 05/06/21 09:00 05/06/21 08:33 Enoxaparin 40 Mg/0.4 Ml Syringe SUBQ 40 mg DAILY GLENDY Administration Lactated Ringer's 1,000 mls @ 100 mls/hr 05/05/21 19:00 05/06/21 04:33 Lr IV 100 mls/hr .Q10H GLENDY Administration Piperacillin Sod/Tazobactam 100 mls @ 200 mls/hr 05/05/21 19:00 05/06/21 07:05 Sod 3.375 gm/ Sodium Chloride IV Infused Q6H GLENDY Infusion Sodium Chloride 250 mls @ 20 mls/hr 05/05/21 20:05 05/05/21 19:30 Normal Saline 0.9% IV 0 mls/hr Q24H PRN Infusion TKO RATE Lisinopril 20 mg 05/06/21 09:00 05/06/21 08:33 Lisinopril 20 Mg Tablet PO 20 mg DAILY GLENDY Administration Oxycodone HCl 5 mg 05/05/21 18:30 05/06/21 08:33 Oxycodone 5 Mg Tablet PO 5 mg Q4HR PRN Administration PAIN Sodium Chloride 10 ml 05/06/21 01:00 05/06/21 08:34 Sodium Chloride Flush 0.9% 10 Ml Syringe IVP Not Given 0100,0900,1700 [facility] - Physical Exam Wound/Incisions: positive: Healing well, Dressing dry and intact, No drainage General Appearance: positive: No acute distress Eyes Bilateral: positive: Normal inspection ENT: positive: ENT inspection nml Neck: positive: Nml inspection Respiratory: positive: Chest non-tender Cardiovascular: positive: Regular rate & rhythm Abdomen: positive: Nml bowel sounds, No distention, Tenderness Rectal: positive: Non-tender Skin: positive: Color nml Neurologic/Psychiatric: positive: Oriented x3 ABX Reporting Has patient been on IV antibiotics over the past 48 hours?: Yes Impression/Plan - Problem List Problem List: Acute cholecystitis and cholelithiasis Resolved. Will discharge to home in the care of her this AM. Follow up with me in 2 weeks.
== END 2021-05-06 10:00 | disposition home or self-care (01) ==
LOC: ED 08:44 → SDS 12:30 → MS2 18:50 → SDS 05-06 10:00
PROVIDERS: ATTEND Surgery
PROC: BF130ZZ Fluoroscopy of Gallbladder and Bile Ducts using High Osmolar Contrast (ICD-10-PCS; 2021-05-05)
PROC: 0FT44ZZ Resection of Gallbladder, Percutaneous Endoscopic Approach (ICD-10-PCS; principal; 2021-05-05 16:00)
DX: K80.12 Calculus of gallbladder with acute and chronic cholecystitis without obstruction (principal); E66.9 Obesity, unspecified; Z68.35 Body mass index [BMI] 35.0-35.9, adult; I10 Essential (primary) hypertension; Z86.718 Personal history of other venous thrombosis and embolism; Z20.822 Contact with and (suspected) exposure to COVID-19
CPT/HCPCS: 0202U; 36415; 47563; 71045; 76705; 80053; 81001; 83690; 84484; 85025; 85379; 85610; 87077; 87086; 87181; 93005; 96374; 96375; 96376; 99285; A9270; J0131; J1170; J1650; J7120; Q9961; 81003